=== PATIENT | male | born 1960 | race Caucasian/White ===

== ENCOUNTER 2017-08-13 15:39 | Inpatient (IN) | payer OTHER ==
[~2017-08-13] VITALS: Ht 175.3 cm; Wt 95.7 kg
--- NOTE | ~2017-08-13 | EKG ---
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 Baseline wander in lead(s) II,aVR Electronically Signed On 08-13-2017 16:55:32 WIRE FENCE ERECTOR by Donny Sawant [email or web address] <ELECTRONICALLY SIGNED> By: Donny Sawant MD 08/13/17 5033 05 05 Donny Sawant MD /JESSY
--- NOTE | ~2017-08-13 | HC ---
[facility] [address] [place] [address] CONSULTATION Name: PALMIRA ALMAZAN Room #: 355-P ADM IN .R.#: [id number] Admission: 08/13/17 Attend Phys: Brian Green MD Discharge: Date of : 58 Report #: [id number] THIS REPORT FOR: //name// CC: Brian Velasco HISTORY OF PRESENT ILLNESS: A 57-year-old male who I have seen 2 years ago for an urgent PTCA stent of his ostial RCA and this was October of 2015. He sought no medical or cardiology followup since that time. Admitted to repair a hernia, which apparently had prior failed operations elsewhere. I am asked to see him for some progressive shortness of breath and dyspnea. He has not had prior heart failure. He has not had LV dysfunction. EF was near normal 2 years ago. He is not aware of any infarct since that time. His chest x-ray, the CT of his abdomen showed a small hernia that was not incarcerated and bilateral pleural effusions. Question of a right lower lobe infiltrate. He denies chest pain, anginal complaints. LABORATORY DATA: Creatinine is 2.2, sodium 141, potassium 3.7, alkaline phosphatase 128. Troponin 0.12, was 0.09, not perceive this to be clinically significant. He has had small elevations in troponins previously without ischemic events. ProBNP was 15,946. H and H are 12.6 and 38, white count 5.7, platelets 220. CT of the abdomen: Cirrhotic changes of his liver, prior cystectomy, appendectomy, right-sided abdominal hernia containing small bowel, some calcification in the aorta and small bilateral pleural effusions, basilar atelectasis, consistent with the chest x-ray findings. SOCIAL HISTORY: He lives alone, not , no children. Moderately heavy alcohol, tobacco use. PAST MEDICAL HISTORY: Positive for coronary artery disease, hypertension, multiple fractures, question diabetes, gout, sleep apnea, carotid stent he states in 2014, an appendectomy, cholecystectomy, hernia surgery x 2 and a rectal tumor with excision. REVIEW OF SYSTEMS: Negative except for increasing fatigue and some nocturia. PHYSICAL EXAMINATION: GENERAL: He is alert. He is in no distress. VITAL SIGNS: Blood pressure is 110/70, pulse 70. HEENT: Eyes reveal xanthelasmas. Pharynx is clear. NECK: Shows preserved upstrokes without JVD or bruits. LUNGS: Slight diminished in the bases, otherwise clear. CARDIOVASCULAR: Regular rate and rhythm, S1, S2. ABDOMEN: Soft. It is tender on the right lower quadrant. There appears to be some hernia. EXTREMITIES: Reveal no edema. Pulses diminished. NEUROLOGIC: Nonfocal. [facility] [address] [place] [address] CONSULTATION Name: PALMIRA ALMAZAN Room #: 355-P [facility] IN M.R.#: [id number] Admission: 08/13/17 Attend Phys: Brian Green MD Discharge: Date of : 58 Report #: [id number] SKIN: Warm and dry without xanthoma or ulcer. MUSCULOSKELETAL: Generalized arthritic changes. ASSESSMENT: 1. Abdominal hernia in need of repair. 2. Mild congestive heart failure exacerbation may well be on the basis of diastolic dysfunction. 3. Coronary artery disease with a history of a drug-eluting stent to his right coronary artery in October 2015 with 40% circ and left anterior descending lesions. 4. Hypertension. 5. Hypercholesterolemia. 6. Tobacco use, chronic obstructive pulmonary disease. 7. History of ETOH abuse. 8. Hypercholesterolemia. RECOMMENDATIONS AND PLAN: I agree with the IV Lasix, which has been added. He does appear to be fairly well compensated at this time. He is also on chlorthalidone, losartan, Bystolic 10 and atorvastatin 40. Would continue all these. Blood pressure control is better tonight, has been hypertensive. The Plavix has been held for possible surgery. I will check an echo Doppler in the morning and he may need stress testing prior to abdominal surgery. I will discuss the timing of this with Dr. Green and Dr. Higgins. I guess he would be at risk for some progression of his coronary disease. Last catheterization as stated was October of 2015 and no cardiology followup since that time. The trivial troponin elevation is not significant. <ELECTRONICALLY SIGNED> By: Donnie Sainz MD, FACC 08/20/177 15 1643 Donnie Sainz MD, FACC /nt
--- NOTE | ~2017-08-13 | EKG ---
[address] [address] ELECTROCARDIOGRAM REPORT Name: NORAHPALMIRA HICKS Room #: 355- ADM IN M.R.#: [id number] Admission: 08/13/17 Attend Phys: Brian Green MD Discharge: Date of : 58 Report #: [id number] THIS REPORT FOR: //name// 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1960 Requested By: Donnie Sainz Order Number: [id number] MD: Donny Sawant Measurements Intervals [place] Rate: 60 P: 45 WY: 209 QRS: 29 QRSD: 98 T: 146 QT: 482 QTc: 482 Interpretive Statements Sinus rhythm Borderline prolonged [place] interval Probable left atrial enlargement LVH with secondary repolarization abnormality Anterior ST elevation, probably due to LVH Electronically Signed On 08-15-2017 9:18:26 WINDERMAN by Donny Sawant [email or web address] <ELECTRONICALLY SIGNED> By: Donny Sawant MD 08/15/17917 6 6 Donny Sawant MD /JESSY
--- NOTE | ~2017-08-13 | HC ---
[facility] [address] [place] [address] CONSULTATION Name: PALMIRA ALMAZAN Room #: 355-P [facility] IN [place].R.#: [id number] Admission: 08/13/17 Attend Phys: Brian Green MD Discharge: 08/22/17 Date of : 58 Report #: [id number] THIS REPORT FOR: //name// CC: Brian Velasco REASON FOR CONSULTATION: Elevated creatinine. REASON FOR PRESENTATION: The patient was admitted on August 13, with abdominal pain. HISTORY OF PRESENT ILLNESS: A 57-year-old with multiple medical problems including diabetes mellitus, coronary artery disease, hypertension, history of stroke. He had recurrent incisional ventral hernia. He presented with worsening abdominal symptoms and was admitted for further evaluation and management. Cardiac evaluation was initiated as the patient is known to have stent of the distal RCA. It does look like that there is an issue of noncompliance. He does not know his kidney function, but he was told that he had some kidney issues couple of years ago. He was also at the [facility] for unclear reasons. On presentation, his creatinine was 2.5. He ended up with the cardiac cath with unknown amount of contrast and his creatinine has started to peak at 3.1 as of today. I am being asked to manage his chronic kidney disease. PAST MEDICAL HISTORY: Extensive and includes the followin. Hypertension. 2. Coronary artery disease. 3. Diabetes mellitus. 4. Noncompliance with medical care. 5. CVA. 6. Recurrent incisional abdominal hernia. 7. Rectal tumor removed in 2013. 8. Cholecystectomy. 9. Appendectomy. 10. Anxiety. FAMILY HISTORY: His father of [place] at a young age. SOCIAL HISTORY: Denies drug or alcohol abuse, but he is a current everyday smoker. MEDICATIONS: Reported aspirin, atorvastatin, Plavix, chlorthalidone, losartan, metformin, and Bystolic. REVIEW OF SYSTEMS: GENERAL: No fever or chills. CARDIOVASCULAR: No chest pain or palpitation. [address] [address] CONSULTATION Name: PALMIRA ALMAZAN Room #: 355-P [facility] IN [facility].#: [id number] Admission: 08/13/17 Attend Phys: Brian Green MD Discharge: 08/22/17 Date of : 58 Report #: [id number] PULMONARY: No cough or hemoptysis. GASTROINTESTINAL: As per the history of present illness. GENITOURINARY: No frequency, no urgency. PHYSICAL EXAMINATION: GENERAL: He is alert and oriented. VITAL SIGNS: Blood pressure 127/82, temperature 37. HEAD AND NECK: No jugular venous distention, no bruit, no thyromegaly. CHEST: Clear to auscultation. CARDIOVASCULAR: No rub. Regular. ABDOMEN: Soft, nontender. LOWER EXTREMITIES: No edema. LABORATORY VALUES: Reviewed. Hemoglobin 12. Chemistry revealed creatinine of 3.1. UA with +3 protein. IMAGING: His chest x-ray was reviewed. Abdomen and CT pelvis reviewed. ASSESSMENT, IMPRESSION, AND PLAN: 1. Acute kidney injury. 2. Contrast-induced nephropathy. 3. Chronic kidney disease. 4. Status post cardiac cath. 5. Hypertension. 6. Diabetes mellitus. 7. Noncompliance with the medical care. 8. This is all acute contrast nephropathy. 9. Continue to watch electrolytes. 10. Good urine output. 11. Avoid nephrotoxins. 12. Continue to hold Lasix, chlorthalidone, losartan for now. 13. We will continue to follow along. <ELECTRONICALLY SIGNED> By: Lilia Haines MD 08/23/17 1703 0847 1143 Lilia Haines MD /nt
--- NOTE | ~2017-08-13 | HC ---
[facility] [address] [place] [address] CONSULTATION Name: PALMIRA ALMAZAN Room #: 355-P ADM IN M.R.#: [id number] Admission: 08/13/17 Attend Phys: Brian Green MD Discharge: Date of : 58 Report #: [id number] THIS REPORT FOR: //name// CC: Brian Velasco MD DATE OF SERVICE: 08/14/2017 TYPE OF REPORT: General surgery consultation. ATTENDING PHYSICIAN: Brian Green M.D. CONSULTING PHYSICIAN: Elio Aaron M.D. REASON FOR CONSULTATION: Abdominal pain. HISTORY OF PRESENT ILLNESS: This is a 57-year-old male patient with multiple medical issues, who is being followed by our service for a recurrent incisional ventral hernia. He has been seen by my partner, Dr. Emilio Higgins in evaluation for this and the patient is in the process of being scheduled for elective repair of his hernia. He was seen in the Emergency Room with worsening abdominal pain. He has had difficulty with upper respiratory symptoms (felt as if he had the flu) with coughing causing worsened abdominal pain. Upon admission, the patient was also found to have an elevated BNP and creatinine. He denies recent fever or chills. PAST MEDICAL HISTORY: Significant for congestive heart failure, diabetes mellitus, previous myocardial infarction, sleep apnea, history of stroke, hypertension and gout. PAST SURGICAL HISTORY: Open appendectomy in 2013, laparoscopic repair of incisional ventral hernia in 2014, open retrorectus repair of recurrent incisional ventral hernia early 2016, cholecystectomy, prostate surgery, excision of a rectal tumor/unresectable polyp and carotid stent placement. HOME MEDICATIONS: Include Lipitor, PhosLo, chlorthalidone, Klonopin, Imdur, Prinivil, Glucophage, Toprol-XL, Phenergan, Aldactone, vitamin D and Plavix. ALLERGIES: No known drug allergies. FAMILY HISTORY: Reviewed and noncontributory to this hospitalization. SOCIAL HISTORY: The patient smokes one-half to 1 pack of cigarettes daily. Note denies use of alcohol or illicit drugs. [facility] [address] [place] [address] CONSULTATION Name: PALMIRA ALMAZAN Room #: 355-P [facility] IN ..#: [id number] Admission: 08/13/17 Attend Phys: Brian Green MD Discharge: Date of : 58 Report #: [id number] REVIEW OF SYSTEMS: As per history of present illness. GENERAL: The patient denies fever or chills. Denies unintentional weight loss. HEENT: Denies changes in taste, vision, hearing or smell. RESPIRATORY: Denies worsening shortness of breath or COPD, has a history of sleep apnea. CARDIOVASCULAR: Denies chest pain or palpitations. GASTROINTESTINAL: Soft and obese with a long midline incisional scar and a transverse right lower quadrant scar. He has tenderness to palpation in the right periumbilical area as well as bulging in the right lateral area with no overlying erythema or edema. GENITOURINARY: Denies dysuria, urgency, increased urinary frequency or hematuria. MUSCULOSKELETAL: Denies myalgia or arthralgia. NEUROLOGICAL: Denies headaches, numbness or tingling. PSYCHIATRIC: Denies depression, anxiety or suicidal ideations. SKIN AND INTEGUMENTARY: Denies new skin lesions, rashes or moles. ENDOCRINE: Denies polydipsia, polyuria, heat or cold intolerance. HEMATOLOGIC: Denies easy bleeding or bruising. All other review of systems is negative. LABORATORY DATA: CBC today shows a white blood cell count of 5.7, hemoglobin 12.6, hematocrit 38.1 and platelets 220. Electrolytes showed a sodium of 141, potassium 3.7, chloride 106, CO2 26, BUN 34, creatinine 2.2 and glucose 125. Albumin was low at 2.8. Troponin-I was slightly elevated at 0.09 on admission, increased to 0.12 this morning. BNP was 15,946. Urinalysis showed 3+ protein, trace blood but was otherwise negative. RADIOLOGIC STUDIES: Chest x-ray showed cardiomegaly with mild infiltrates. CT of the abdomen and pelvis through the Emergency Room showed a right-sided abdominal wall hernia containing small bowel and peritoneal fat measuring 4.2 cm with no findings of incarceration or obstruction. Mild bilateral pleural effusions are present. The patient also had a nodular liver suggestive of mild cirrhotic change. IMPRESSION AND PLAN: This is a 57-year-old male patient with the above listed comorbidities, who has a recurrent incisional ventral hernia. He also appears to have congestive heart failure and is being evaluated by Cardiology. He was in the process of being scheduled for elective recurrent incisional ventral hernia repair; however, he will need to be cleared from a cardiopulmonary standpoint. The pathophysiology and natural history of his recurrent hernia were discussed. The patient expressed understanding of the plan. We will follow along while hospitalized. We sincerely appreciate the opportunity to participate in the care of this [facility] [address] [place] [address] CONSULTATION Name: PALMIRA ALMAZAN Room #: 355-P ADM IN M.R.#: [id number] Admission: 08/13/17 Attend Phys: Brian Green MD Discharge: Date of : 58 Report #: [id number] patient and will leave further recommendations and orders in the electronic medical record as appropriate. <ELECTRONICALLY SIGNED> By: Elio Aaron MD, FACS 08/16/17 0856 1446 0130 Elio Aaron MD, FACS /nt
--- NOTE | ~2017-08-13 | 2DMMODE ---
[place] [address] [address] [facility] [employer] [place] [address] 2 D/M-MODE ECHOCARDIOGRAM Name: PALMIRA ALMAZAN Room #: 355-P ADM IN ..#: [id number] Admission: 08/13/17 Attend Phys: Brian Green MD Discharge: Date of : 58 Date of Service: 08/15/17 1845 Report #: [id number] THIS REPORT FOR: //name// APPROVED REPORT Study performed: 08/15/2017 15:24:20 EXAM: Comprehensive 2D, Doppler, and color-flow Echocardiogram Patient Location: Bedside Room #: 355 Status: on-call BSA: 2.14 HR: 69 bpm BP: 145/91 mmHg Rhythm: NSR Other Information Study Quality: Adequate Risk Factors: Cardiac Risk Factors: HTN, Hyperlipidemia, DM Indications Pre-Op Congestive Heart Failure Chest Pain S/P W[place](2015) 2D Dimensions LVEF(%): 36.84 (>50%) IVSd: 14.32 (7-11mm) LVOT Diam: 21.00 (18-24mm) LVDd: 52.87 mm PWd: 12.86 (7-11mm) Ascending Ao: 32.13 (22-36mm) LVDs: 43.42 (25-40mm) Aortic Root: 33.13 mm LV Single Plane 4CH: 29.60 % LV Single Plane 2CH: 31.51 % Mike's LVEF: 30.56 % Biplane EF: 31.4 % Volumes Left Atrial Volume (Systole) Single Plane 4CH: 76.83 mL Single Plane 2CH: 89.98 mL LA ESV Index: 43.00 mL/m2 [facility] [place] [address] 2 D/M-MODE ECHOCARDIOGRAM Name: NORAHPALMIRA HICKS Room #: 355-P [facility] IN [facility]#: [id number] Admission: 08/13/17 Attend Phys: Brian Green MD Discharge: Date of : 58 Date of Service: 08/15/17 1845 Report #: [id number] Aortic Valve AoV Peak Eddie.: 1.35 m/s AO Peak Gr.: 8.75 mmHg LVOT Max P.37 mmHg LVOT Max V: 0.92 m/s ALHAJI Vmax: 2.26 cm2 AI Vmax: 3.61 m/s AI [place]: 1.70 m/s2 AI PHT: 615.69 ms Mitral Valve E/A Ratio: 3.8 MV Decel. Time: 170.84 ms MV E Max Eddie.: 1.10 m/s MV A Eddie.: 0.29 m/s MV PHT: 49.54 ms IVRT: 50.75 ms Pulmonary Valve PV Peak Eddie.: 0.68 m/s PV Peak Gr.: 1.85 mmHg Pulmonary Vein P Vein S: 0.26 m/s P Vein A: 0.19 m/s P Vein D: 0.79 m/s P Vein A Dur.: 124.6 msec P Vein S/D Ratio: 0.33 Tricuspid Valve RAP Estimate: 5.00 mmHg Left Ventricle The left ventricle is normal size. There is global hypokinesis of the left ventricle. Mild to moderate concentric left ventricular hypertrophy. Left ventricular systolic function is moderately decreased. LVEF is 35-40%. Grade III - reversible restrictive diastolic dysfunction. Right Ventricle The right ventricle is normal size. The right ventricular systolic function is normal. Atria Left atrium is moderately dilated. The right atrium size is normal. Aortic Valve The Aortic valve is sclerotic. Mild aortic regurgitation. There is no aortic valvular stenosis. [facility] [address] [place] [address] 2 D/M-MODE ECHOCARDIOGRAM Name: PALMIRA ALMAZAN Room #: 355-P [facility] IN [facility]#: [id number] Admission: 08/13/17 Attend Phys: Brian Green MD Discharge: Date of : 58 Date of Service: 08/15/17 1845 Report #: [id number] Mitral Valve There is mitral annular calcification. Moderate mitral regurgitation. No evidence of mitral valve stenosis. Tricuspid Valve The tricuspid valve is normal in structure. Trace tricuspid regurgitation. Unable to assess PA pressure. Pulmonic Valve The pulmonary valve is normal in structure. There is no pulmonic valvular regurgitation. Great Vessels The aortic root is normal in size. IVC is normal in size and collapses with >50% inspiration Pericardium There is no pericardial effusion. <Conclusion> The left ventricle is normal size. Mild to moderate concentric left ventricular hypertrophy. LVEF is 35-40%. Grade III - reversible restrictive diastolic dysfunction. The right ventricle is normal size. Left atrium is moderately dilated. The Aortic valve is sclerotic. There is no aortic valvular stenosis. Moderate mitral regurgitation. Trace tricuspid regurgitation. Unable to assess PA pressure. The aortic root is normal in size. There is no pericardial effusion. <ELECTRONICALLY SIGNED> By: Donnie Sainz MD, FACC 08/15/171844 44 44 Donnie Sainz MD, FACC /INF
--- NOTE | ~2017-08-13 | CATHLAB ---
[facility] [address] [place] [address] INVASIVE PROCEDURE REPORT Name: PALMIRA ALMAZAN Room #: 355-P [facility] IN [facility]#: [id number] Admission: 08/13/17 Attend Phys: Brian Green MD Discharge: Date of : 58 Date of Service: 08/20/172211 Report #: [id number] THIS REPORT FOR: //name// APPROVED REPORT Patient Details Patient Status: In-Patient Room #: The patient is a 57 year-old male Event Personnel Donnie Sainz Cvt Rn, Rojas Walton RN, Tisha Mcmahon RN RN, Nisha Srivastava RTR, ESPINOZA Yeung, Jannette Orantes Monitor Procedures Performed Art Access - R femoral artery* Ancelmo Access - R femoral vein [id number] Initial Mod Sed Same Phys/QHP Gr5y [id number] Right and Left Heart Cath w/or w/o Coronarie [id number] RLHC Hemostasis with Manual pressure Renal Bilateral Peripheral Angiography [id number] CVRENALBIL Procedure Narrative The patient was brought urgently to the Cardiac Catheterization Laboratory and was prepped and draped in a sterile manner. The Right Groin^ was infiltrated with 1% Lidocaine subcutaneous anesthesia. A Right Heart Catheterization was performed with a 7 Fr. Kingsley-Angelika catheter and pressure were recorded. Cardiac outputs were obtained by the Thermal Dilution method. A PINNACLE 6FR Sheath #[id number] sheath was inserted into the RFA^. Coronary angiography was performed using coronary diagnostic catheters. The right coronary system was accessed and visualized with a JR 4 catheter. The left coronary system was accessed and visualized with a JL 4 catheter. The left ventricle was accessed and visualized with a Pigtail catheter. Left ventricular/Aortic Valve gradient assessed via catheter pullback. Pre-demployment femoral angiogram was performed . Hemostasis was obtained with manual pressure following sheath removal without any complications. The patient tolerated the procedure well and there were no complications associated with the procedure. There was no hematoma. Intraoperative Conscious Sedation Sedation start time: 08:29 Case end Time: 08:51 Fentanyl 25.0 mcg Versed 1.5 mg Fluoro Time: 3.05 minutes [address] [place] [address] INVASIVE PROCEDURE REPORT Name: PALMIRA ALMAZAN Room #: 355-P [facility]#: [id number] Admission: 08/13/17 Attend Phys: Brian Green MD Discharge: Date of : 58 Date of Service: 08/20/17 2212 Report #: [id number] Dose: DAP 3844.10 cGycm2 432 mGy Contrast Type and Amount: Visipaque 25 ml Hemodynamics The right atrial mean pressure is 19 mmHg. The right ventricular pressure is 42/6 mmHg. The pulmonary artery pressure is 35/17 mmHg with a mean of 24 mmHg. The mean pulmonary capillary wedge pressure is 19 mmHg. The aortic pressure is 97/59 mmHg with a mean of 75 mmHg. The left ventricular pressure is 96/3 mmHg with a mean of mmHg. The left ventricular end diastolic pressure is 17 mmHg. The cardiac output using thermo method is 3.80 L/min. The cardiac index using thermo method is 1.81 L/min/m2. Conclusion #1 successful right heart catheterization as described above with cardiac output by thermodilution #2 left ventricular pressures obtained no LV gram due to renal insufficiency #3 left main mildly calcified with mild irregularities large giving rise to LAD circumflex and ramus branch #4 extensive proximal calcification of the LAD with mild irregularities extensive the apex eccentric proximal lesion of 50% with mild diagonal disease #5 there is a ramus branch with 3040% irregularity #6 circumflex OM nondominant with mild irregularity #7 dominant right proximal occlusion the PDA STELLA are filled fairly briskly via the left system #8 the ejection fraction by noninvasive means is known to be reduced EF 3035% with inferior wall infarct Recommendations plan: Continue aggressive risk factor modification only 25-30 mL of contrast was utilized here with significant underlying chronic kidney disease No indication for intervention would treat is moderate residual disease with medical therapy. Okay to proceed with abdominal hernia repair surgery per general surgery recommendations <ELECTRONICALLY SIGNED> By: Donnie Sainz MD, FACC 08/20/172211 11 11 Donnie Sainz MD, FACC /INF
[~2017-08-13 15:39] MED LIST: ALLOPURINOL 10100 M1 PO; ASPIRIN325 PO; BYSTOLIC 5 MG5 M1 PO; CHLORTHALIDONE25 MG PO; CLONAZEPAM 1 MG1 M1 PO; COZAAR 50 MG TA50 M2 PO; LIPITOR40 MG PO; LISINOPRIL20 MG PO; METFORMIN HCL500 MG PO; PLAVIX 75 MG TA75 M1 PO
[2017-08-13 15:50] VITALS: BP 198/120
[2017-08-13 16:42] LABS: ABSOLUTE NEUTROPHILS 4.9 thou/uL (1.4-8.2); BASOPHILS 0.7 % (0.0-2.0); HEMATOCRIT 37.7 % (42.0-52.0); HEMOGLOBIN 12.5 gm/dL (14.0-18.0); MCH 26.7 pg (26.0-34.0); MCHC 33.1 g/dL (28.0-37.0); MCV 80.7 fL (80.0-100.0); MONOCYTES 6.8 % (1.0-8.0); PLATELET COUNT 196 thou/uL (150-400); POLYS 77.5 % (36.0-66.0); RBC 4.67 mil/uL (4.50-6.00); RDW 16.1 % (10.5-14.5); WBC 6.4 thou/uL (4.0-11.0)
[2017-08-13 16:49] LABS: CALCIUM 8.6 mg/dL (8.5-10.1); CREATININE 2.1 mg/dL (0.7-1.3); POTASSIUM 3.8 mmol/L (3.5-5.1)
[2017-08-13 16:58] LABS: ALBUMIN 2.8 g/dL (3.4-5.0); TOTAL BILIRUBIN 0.4 mg/dL (<0.1-1.0); TOTAL PROTEIN 6.9 g/dL (6.4-8.2); TROPONIN-I 0.09 ng/mL (<0.06)
[2017-08-13 17:58] LABS: URINE BILIRUBIN NEGATIVE (Negative); URINE BLOOD TRACE (Negative); URINE CLARITY CLEAR; URINE COLOR YELLOW; URINE GLUCOSE-RANDOM* TRACE (Negative); URINE KETONES NEGATIVE (Negative); URINE LEUKOCYTES-REFLEX NEGATIVE (Negative); URINE NITRITE-REFLEX NEGATIVE (Negative); URINE PROTEIN (DIPSTICK) 3+ (Negative); URINE UROBILINOGEN 0.2 E.U./dl (0.2-1.0)
[2017-08-13 18:02] LABS: BACTERIA-REFLEX None Seen /HPF (None Seen); CASTS None Seen /LPF (None Seen); CRYSTALS None Seen /LPF (None Seen); SQUAMOUS None Seen /LPF (0-3); URINE RBC 0-2 Rare /HPF (0-2); URINE WBC-REFLEX 0-5 Rare /HPF (0-5)
[2017-08-13 20:33] VITALS: BP 157/90
[2017-08-13 20:37] VITALS: BP 184/109
[2017-08-13 23:19] VITALS: BP 178/106
[2017-08-14 02:42] VITALS: BP 177/99
[2017-08-14 03:50] VITALS: BP 164/92
[2017-08-14 04:49] LABS: HEMATOCRIT 38.1 % (42.0-52.0); HEMOGLOBIN 12.6 gm/dL (14.0-18.0); MCH 26.7 pg (26.0-34.0); MCV 80.9 fL (80.0-100.0); RBC 4.71 mil/uL (4.50-6.00); RDW 15.5 % (10.5-14.5); WBC 5.7 thou/uL (4.0-11.0)
[2017-08-14 04:59] LABS: CALCIUM 8.8 mg/dL (8.5-10.1); CREATININE 2.2 mg/dL (0.7-1.3); POTASSIUM 3.7 mmol/L (3.5-5.1)
[2017-08-14 05:08] LABS: TROPONIN-I 0.12 ng/mL (<0.06)
[2017-08-14 07:27] VITALS: BP 176/107
[2017-08-14 11:37] VITALS: BP 148/91
[2017-08-14 15:23] VITALS: BP 111/69
[2017-08-14 20:10] VITALS: BP 140/86
[2017-08-15 03:50] VITALS: BP 132/90
[2017-08-15 06:28] LABS: HEMATOCRIT 37.4 % (42.0-52.0); HEMOGLOBIN 12.1 gm/dL (14.0-18.0); MCH 26.3 pg (26.0-34.0); MCHC 32.3 g/dL (28.0-37.0); MCV 81.4 fL (80.0-100.0); RBC 4.6 mil/uL (4.50-6.00); RDW 16.2 % (10.5-14.5); WBC 6.9 thou/uL (4.0-11.0)
[2017-08-15 06:48] LABS: CALCIUM 9.1 mg/dL (8.5-10.1); CREATININE 2.5 mg/dL (0.7-1.3); POTASSIUM 4.2 mmol/L (3.5-5.1)
[2017-08-15 07:37] VITALS: BP 145/91
[2017-08-15 12:05] VITALS: BP 140/96
[2017-08-15 19:40] VITALS: BP 118/74
[2017-08-16 03:50] VITALS: BP 147/74
[2017-08-16 05:21] LABS: CALCIUM 9.4 mg/dL (8.5-10.1); CREATININE 2.6 mg/dL (0.7-1.3); MAGNESIUM 2.1 mg/dL (1.8-2.4); POTASSIUM 4.3 mmol/L (3.5-5.1)
[2017-08-16 08:15] VITALS: BP 124/69
[2017-08-16 11:24] VITALS: BP 139/81
[2017-08-16 18:08] VITALS: BP 142/70
[2017-08-16 19:47] VITALS: BP 126/70
[2017-08-17 04:29] VITALS: BP 132/73
[2017-08-17 05:30] LABS: CALCIUM 9.4 mg/dL (8.5-10.1); CREATININE 2.5 mg/dL (0.7-1.3); MAGNESIUM 2.1 mg/dL (1.8-2.4); POTASSIUM 4.5 mmol/L (3.5-5.1)
[2017-08-17 08:00] VITALS: BP 151/73
[2017-08-17 13:32] VITALS: BP 135/82
[2017-08-17 16:47] VITALS: BP 109/69
[2017-08-18 04:20] VITALS: BP 155/89
[2017-08-18 05:07] LABS: HEMATOCRIT 38.6 % (42.0-52.0); HEMOGLOBIN 12.6 gm/dL (14.0-18.0); MCHC 32.7 g/dL (28.0-37.0); MCV 82.8 fL (80.0-100.0); RBC 4.66 mil/uL (4.50-6.00); RDW 16.1 % (10.5-14.5); WBC 6.7 thou/uL (4.0-11.0)
[2017-08-18 05:31] LABS: CALCIUM 8.9 mg/dL (8.5-10.1); CREATININE 2.7 mg/dL (0.7-1.3); POTASSIUM 4.2 mmol/L (3.5-5.1)
[2017-08-18 17:49] VITALS: BP 143/81
[2017-08-18 19:50] VITALS: BP 137/65
[2017-08-18 23:40] VITALS: BP 124/79
[2017-08-19 04:00] VITALS: BP 123/79
[2017-08-19 06:50] LABS: MCH 26.8 pg (26.0-34.0); MCHC 32.4 g/dL (28.0-37.0); MCV 82.8 fL (80.0-100.0); RBC 4.47 mil/uL (4.50-6.00); WBC 5.6 thou/uL (4.0-11.0)
[2017-08-19 07:18] LABS: POTASSIUM 4.3 mmol/L (3.5-5.1)
[2017-08-19 08:15] VITALS: BP 155/55
[2017-08-19 11:44] VITALS: BP 111/58
[2017-08-19 17:31] VITALS: BP 137/78
[2017-08-19 19:22] VITALS: BP 123/74
[2017-08-20 04:21] LABS: CREATININE 3.1 mg/dL (0.7-1.3); MAGNESIUM 2.3 mg/dL (1.8-2.4); POTASSIUM 4.8 mmol/L (3.5-5.1)
[2017-08-20 05:55] VITALS: BP 127/82
[2017-08-20 09:11] VITALS: BP 139/82
[2017-08-20 11:42] LABS: URINE BILIRUBIN NEGATIVE (Negative); URINE BLOOD NEGATIVE (Negative); URINE CLARITY CLEAR; URINE COLOR YELLOW; URINE GLUCOSE-RANDOM* NEGATIVE (Negative); URINE KETONES NEGATIVE (Negative); URINE LEUKOCYTES NEGATIVE (Negative); URINE NITRITE NEGATIVE (Negative); URINE PROTEIN (DIPSTICK) 2+ (Negative); URINE SPECIFIC GRAVITY 1.015 (1.005-1.035); URINE UROBILINOGEN 0.2 E.U./dl (0.2-1.0)
[2017-08-20 11:59] LABS: BACTERIA 1-9 Few /HPF (None Seen); CASTS None Seen /LPF (None Seen); CRYSTALS None Seen /LPF (None Seen); SQUAMOUS 4-10 Moderate /LPF (0-3); URINE RBC None Seen /HPF (0-2); URINE WBC 0-5 Rare /HPF (0-5)
[2017-08-20 12:00] LABS: URINE PROTEIN-RANDOM* 153.3 mg/dL (<11.9)
[2017-08-20 19:09] VITALS: BP 133/70
[2017-08-21 04:10] VITALS: BP 112/53
[2017-08-21 06:13] LABS: ALBUMIN 2.5 g/dL (3.4-5.0); CREATININE 3.2 mg/dL (0.7-1.3); PHOSPHORUS 5.2 mg/dL (2.5-4.9); POTASSIUM 4.6 mmol/L (3.5-5.1)
[2017-08-21 07:51] VITALS: BP 142/73
[2017-08-21 12:36] VITALS: BP 144/79
[2017-08-21 15:25] VITALS: BP 144/79
[2017-08-21 16:15] VITALS: BP 129/69
[2017-08-21 19:22] VITALS: BP 124/71
[2017-08-22 04:10] VITALS: BP 125/57
[2017-08-22 05:28] LABS: ALBUMIN 2.4 g/dL (3.4-5.0); CALCIUM 8.8 mg/dL (8.5-10.1); CREATININE 3.1 mg/dL (0.7-1.3); PHOSPHORUS 5.4 mg/dL (2.5-4.9)
[2017-08-22 07:50] VITALS: BP 112/59
[2017-08-22] MEDS ORDERED: HYDROCODONE-AP1 EAC6 PO (08:43)
[2017-12-29] MEDS ORDERED: XANAX 0.25 MG0.25 MG PO (08:54)
== END 2017-08-22 14:53 | disposition home health service (06) | DRG 286 ==
LOC: ER 15:39 → EROBS 17:44 → 3W 17:44
PROVIDERS: Emergency Medicine; Hospitalist; Internal Medicine; Internal Medicine Cardiovascular Disease; Surgery
PROC: B2111ZZ Fluoroscopy of Multiple Coronary Arteries using Low Osmolar Contrast (ICD-10-PCS; principal; 2017-08-20)
PROC: 4A023N8 Measurement of Cardiac Sampling and Pressure, Bilateral, Percutaneous Approach (ICD-10-PCS; principal; 2017-08-20)
PROC: B2151ZZ Fluoroscopy of Left Heart using Low Osmolar Contrast (ICD-10-PCS; principal; 2017-08-20)
DX: I13.0 Hypertensive heart and chronic kidney disease with heart failure and stage 1 through stage 4 chronic kidney disease, or unspecified chronic kidney disease (principal); I50.23 Acute on chronic systolic (congestive) heart failure; N17.9 Acute kidney failure, unspecified; E46 Unspecified protein-calorie malnutrition; K21.9 Gastro-esophageal reflux disease without esophagitis; F41.9 Anxiety disorder, unspecified; F17.210 Nicotine dependence, cigarettes, uncomplicated; E11.22 Type 2 diabetes mellitus with diabetic chronic kidney disease; E11.65 Type 2 diabetes mellitus with hyperglycemia; M10.9 Gout, unspecified; Z60.2 Problems related to living alone; I25.10 Atherosclerotic heart disease of native coronary artery without angina pectoris; J44.9 Chronic obstructive pulmonary disease, unspecified; E78.00 Pure hypercholesterolemia, unspecified; G62.2 Polyneuropathy due to other toxic agents; T50.8X5A Adverse effect of diagnostic agents, initial encounter; E11.40 Type 2 diabetes mellitus with diabetic neuropathy, unspecified; E78.5 Hyperlipidemia, unspecified; I16.0 Hypertensive urgency; N18.3 Chronic kidney disease, stage 3 (moderate); K43.2 Incisional hernia without obstruction or gangrene; I25.5 Ischemic cardiomyopathy; I25.2 Old myocardial infarction; Z90.49 Acquired absence of other specified parts of digestive tract; Z86.73 Personal history of transient ischemic attack (TIA), and cerebral infarction without residual deficits; Z79.82 Long term (current) use of aspirin; Z79.899 Other long term (current) drug therapy; Z95.5 Presence of coronary angioplasty implant and graft; Z82.49 Family history of ischemic heart disease and other diseases of the circulatory system; Y92.89 Other specified places as the place of occurrence of the external cause; Z91.14 Patient's other noncompliance with medication regimen
CPT/HCPCS: 10879

== ENCOUNTER 2017-09-17 05:27 | Inpatient (IN) | payer OTHER ==
[~2017-09-17] VITALS: Ht 172.7 cm; Wt 97.3 kg
[2017-09-17] VITALS (7 sets, daily range): BP systolic 132–184; BP diastolic 75–97
--- NOTE | ~2017-09-17 | O ---
[facility] [address] [place] [address] OPERATIVE REPORT Name: PALMIRA ALMAZAN Room #: 416-P ADM IN M.R.#: [id number] Admission: 09/17/17 Attend Phys: Emilio Higgins MD, Discharge: Date of : 58 Report #: [id number] THIS REPORT FOR: //name// CC: Emilio Velasco DATE OF SERVICE: 09/17/2017 PREOPERATIVE DIAGNOSES: 1. Incarcerated recurrent incisional ventral hernia. 2. Congestive heart failure. 3. Diabetes mellitus. 4. Prior myocardial infarction. 5. Obstructive sleep apnea. 6. History of strokes. 7. Hypertension. 8. History of gout. POSTOPERATIVE DIAGNOSES: 1. Incarcerated recurrent incisional ventral hernia. 2. Congestive heart failure. 3. Diabetes mellitus. 4. Prior myocardial infarction. 5. Obstructive sleep apnea. 6. History of strokes. 7. Hypertension. 8. History of gout. 9. Dense intra-abdominal adhesions. 10. Ischemic abdominal wall fascia. 11. Loss of abdominal domain. PROCEDURES PERFORMED: 1. Exploratory laparotomy. 2. Extensive lysis of adhesions lasting 92 minutes. 3. Debridement of ischemic abdominal wall fascia with explantation of displaced synthetic mesh. 4. Complex abdominal wall reconstruction with open repair of multiple incarcerated recurrent incisional ventral hernias using synthetic mesh. 5. Bilateral component separation. 6. Adjacent tissue transfer closure of the anterior abdominal wall, ultimately measuring 42 x 37 cm in dimension (1554 square cm). 7. Placement of a topical wound VAC device (TOSHIA). SURGEON: Emilio Higgins MD SIGNAL INSPECTOR: THI Curry [facility] [address] [place] [address] OPERATIVE REPORT Name: PALMIRA ALMAZAN Room #: 416-P [facility] IN ..#: [id number] Admission: 09/17/17 Attend Phys: Emilio Higgins MD, Discharge: Date of : 58 Report #: [id number] ANESTHESIA: General endotracheal anesthesia with epidural placed in preop. ESTIMATED BLOOD LOSS: 100 mL. COMPLICATIONS: None appreciated. SPECIMENS: 1. Ischemic abdominal wall fascia to pathology. 2. Synthetic mesh to pathology. 3. Hernia sac to pathology. INDICATIONS: The patient is a 57-year-old obese male with the above-mentioned comorbidities, who has undergone both a laparoscopic repair of an incisional ventral hernia as well as a subsequent open retrorectus repair of a recurrent incisional hernia, both using a synthetic mesh in the past. Unfortunately, the patient has had recurrence of this in the right lower quadrant as well as about the midline incision from his most recent repair and as it has incarcerated contents with chronic debilitating pain, indication was for operative repair today. DESCRIPTION OF PROCEDURE: After explaining the risks, benefits and alternatives of the procedure with the patient in detail in the preoperative holding area and obtaining written consent, the patient was brought to the operating room and placed supine on the operating room table. After conducting a thorough timeout procedure, verifying correct patient and procedure, the patient was given general endotracheal anesthesia. Once adequate anesthesia was attained, SCDs were hooked up to pneumatic compression device. He was given a preoperative dose of antibiotics in line with the SCIP protocol. The patient's abdomen was prepped and draped in standard surgical sterile fashion. A #10 bladed scalpel was used to create a longitudinal midline wound from the subxiphoid location to the suprapubic location and carried to the right of the patient's umbilicus following his prior incision site. Electrocautery was used to carry this down through skin and subcutaneous tissues to ensure hemostasis. Once I arrived upon the fascia in the superior most aspect of the incision, I was able to score this and place a finger into the abdomen to control the incision site to prevent injury to the underlying structures from thermal spread. Once I had opened the entirety of the midline fascial wound, which included using curved Medina scissors to transect the prior placed synthetic mesh down the midline, I had a full access to the intra-abdominal domain. I continued taking down adhesions using electrocautery and Metzenbaum scissor dissection, although luckily the bowels were not tethered to the abdominal wall whatsoever and it was incarcerated with mainly omentum. Once I had finished the lysis of adhesions and freed all the omentum from the posterior aspect of the anterior abdominal wall, I proceeded to continue debridement of the ischemic abdominal wall fascia as this was nonviable down the midline. This [address] [address] OPERATIVE REPORT Name: PALMIRA ALMAZAN KURT Room #: 416-P [facility] IN M.R.#: [id number] Admission: 09/17/17 Attend Phys: Emilio Higgins MD, Discharge: Date of : 58 Report #: [id number] was resected with electrocautery and in doing so, I also explanted the prior placed synthetic mesh patch. All synthetic material was removed in this fashion and passed off the field as specimen. Once I debrided the fascia back to healthy vascularized actual fascia and not simply hernia sac, we were able to evaluate the hernias in question. The patient had a recurrent incisional hernia down the midline as well as the right lower quadrant open appendectomy incision site. I now proceeded to continue debridement by creating large flaps circumferentially around both hernia defects externally. Once these flaps had been created keeping all perforating vessels intact, I proceeded to perform repair of the hernia defect in the right lower quadrant. This was closed using a #1 PDS suture in standard running fashion. Evaluation of the retrorectus space at this juncture showed that it had been obliterated at his most recent attempted hernia repair and there was some concern that his right rectus muscle was atrophic; however, upon dissecting today, he had a beefy intact normal rectus muscle on both sides. Now that the hernia had been sutured closed, hemostasis was assured throughout. The small bowel was evaluated and was healthy and uninjured. I proceeded to close the midline fascial wound using looped #1 PDS suture in standard running fashion. This was tied down in the subxiphoid location in standard fashion. I had elected to place a synthetic onlay in this setting as intraperitoneal was not ideal in this patient population as well as the retrorectus space having already been obliterated. Upon closing the midline fascial wound, it appeared that it was going to be under significant tension and as such, the sutures were loosened up and I performed bilateral component separation of the external oblique aponeurosis on both sides. This was done by using electrocautery to score the lateral border of the rectus abdominis muscle bilaterally, which allowed significant medial mobilization of the midline tissues. The sutures were now tightened down and tied down in subxiphoid location as previously described, bringing the midline fascial wound together without significant tension down the midline. I now selected a piece of Prolene hernia mesh measuring 30 x 30 cm in dimension. This was cut and tailored to size to fit as an onlay in the subcutaneous space and was anchored to this fascia using numerous sutures of #1 PDS in standard interrupted fashion as well as 32 mL of Tisseel. This held the mesh flat to the abdominal wall with excellent orientation. Care was taken to anchor this with both sutures and glue at an area 5 cm lateral to the right lower quadrant hernia defect and was anchored to the anterior superior iliac spine on the right as well as fascia all along the lateral and inferior and superior borders around the hernia defect itself. The mesh itself covered both the hernia defect as well as the midline fascial closure, which had an incisional ventral hernia as well upon entry into the abdomen. Two separate 19-Guatemalan round Getachew-Banda drains were now brought out, one through the right lower quadrant and the other through the left lower quadrant, which were anchored to the skin using 2-0 nylon in standard fashion. Each drain crossed low in the pelvis and ran up the subcutaneous gutters. As the patient's tissues appeared substandard in the subcutaneous space, I did perform an adjacent tissue transfer closure. The large skin flaps were elevated and relaxing incisions were made internally [address] [address] OPERATIVE REPORT Name: PALMIRA ALMAZAN Room #: 416-P ADM IN M.R.#: [id number] Admission: 09/17/17 Attend Phys: Emilio Higgins MD, Discharge: Date of : 58 Report #: [id number] along the subcutaneous gutters using electrocautery. This allowed me to medially rotate vascularized pedicles of subcutaneous fat down the midline, which were anchored down the midline using 3-0 PDS in standard interrupted inverted fashion. Once I performed adjacent tissue transfer closure of the subcutaneous space, we had vascularized healthy tissue overlying the mesh in question. I then closed the skin using skin leo in standard fashion and applied a topical wound VAC (TOSHIA) device. At the end of the lengthy procedure, all instrument, needle and sponge counts were correct. The patient tolerated the procedure without incident, was awakened in the operating room and transitioned to the recovery room in stable condition with no apparent complications. <ELECTRONICALLY SIGNED> By: Emilio Higgins MD, FACS 09/18/17 0743 1621 [id number] Emilio Higgins MD, FACS /nt
--- NOTE | ~2017-09-17 | S ---
[facility] [address] [place] [address] SURGICAL PATH RPT PROCEDURE Name: NIELS ALMAZAN Room #: 416-P ADM IN M.R.#: [id number] Admission: 09/17/17 Date of : 58 Discharge: Report #: [id number] Path Case #: [id number] PATHOLOGY REPORT COLLECTION DATE: 09/17/2017 RECEIVED DATE: 09/17/2017 SUBMITTING PHYS: Dr. Emilio Higgins OTHER PHYS: Dr. Kingsley Velasco SPECIMEN(S) RECEIVED: A.Abdominal mesh B.Ventral hernia sac C.Abdominal wall tissue * * * * * * * * * * * * FINAL DIAGNOSIS: A. "Abdominal mesh", removal: - Fibroadipose connective tissue and synthetic material with fibrosis and chronic inflammation consistent with abdominal mesh. B. "Ventral hernia sac", hernia repair: - Vascularized fibroadipose connective tissue with mesothelial lining consistent with hernia sac. C. "Abdominal wall tissue", excision: - Vascularized fibroadipose connective tissue and skeletal muscle with fibrosis, chronic inflammation, focal fresh hemorrhage and skeletal muscle atrophy. (CLW:db; 09/18/2017) PATHOLOGIST: Joanna Farley M.D. REPORT ELECTRONICALLY SIGNED BY: Joanna Farley M.D. DATE/TIME: 09/18/2017 14:57 * * * * * * * * * * * * GROSS PATHOLOGY: A. Received in formalin labeled "Niels Almazan, abdominal wall mesh" are multiple elliptical and irregular portion of blue-clear woven surgical mesh which measure in aggregate 14.2 x 11.0 x 0.6 cm. The mesh is covered with a thin layer of pink-miller membranous soft tissue. One of the portions has a scant amount of yellow-miller adherent fibroadipose tissue. No gross abnormalities are identified. Corpsman sections of the attached soft tissue are submitted in cassette A1. B. Received in formalin labeled "Niels Almazan, ventral hernia sac" are 2 portions of pink-miller membranous soft tissue which measure 4.5 x 2.3 x 0.7 cm and 5.3 x 2.3 x 0.5 cm. The specimen is serially sectioned to reveal a miller-white fibrotic cut surface and no gross [address] [address] SURGICAL PATH RPT PROCEDURE Name: NIELS ALMAZAN Room #: 416-P ADM IN [facility].#: [id number] Admission: 09/17/17 Date of : 58 Discharge: Report #: [id number] Path Case #: [id number] abnormalities. Corpsman sections are submitted in cassette B1. C. Received in formalin labeled "Niels Almazan, abdominal wall tissue" is a 14.6 x 3.2 x 0.8 cm portion of pink-miller rubbery soft tissue. The specimen is sectioned to reveal a miller-white fibrotic cut surface. Corpsman sections are submitted in cassette C1. ([facility] [place]; 09/17/2017) CLINICAL HISTORY: Recurrent incisional ventral hernia. INITIAL CPT CODE(S): A; 92035 B; 37927 C; 41546 Professional services performed by [facility] at [facility] [address], [place] [address] Technical services performed by [facility] at [address] [place] [address], [address], [place] [address]. [facility] [address] [place] [address] PHONE: [phone] DIRECTOR: Trenton Garcia M.D. * * * END OF REPORT * * *
--- NOTE | ~2017-09-17 | HC ---
[facility] [address] [place] [address] CONSULTATION Name: PALMIRA ALMAZAN Room #: 416-P [facility] IN .R.#: [id number] Admission: 09/17/17 Attend Phys: Emilio Higgins MD, Discharge: 09/24/17 Date of : 58 Report #: [id number] THIS REPORT FOR: //name// CC: Emilio Velasco DATE OF SERVICE: 09/21/2017 HISTORY OF PRESENT ILLNESS: The patient is a 57-year-old obese white male was admitted and noted to have an incarcerated recurrent incisional ventral hernia. He underwent explantation of displaced mesh with complex abdominal wall reconstruction 09/17/[address] Parsons. He has the drain in place. He has multiple medical comorbidities as noted below and we are seeing him in rehabilitation medicine consultation. PAST MEDICAL HISTORY: Includes a prior CVA with residual right-sided weakness and the use of a cane. History of hypertension, CHF, diabetes mellitus, prior [place], obstructive sleep apnea, acute on chronic renal insufficiency. MEDICATIONS: Please see the full medication listing. SOCIAL HISTORY: Lives in a house with his mother 2 steps in and used a cane to get around. REVIEW OF SYSTEMS: Did not offer any current complaints of chest pain, shortness of breath. He has some abdominal discomfort as expected. No focal extremity pain complaints at this time other than the residual right-sided weakness from his prior stroke. PHYSICAL EXAMINATION: GENERAL: A 57-year-old overweight white male, bearded no obvious distress. VITAL SIGNS: Temperature 98.4, pulse 60, respirations 18, blood pressure 181/93. HEENT: Facies appeared symmetric. EXTREMITIES: Functional range of motion of both upper extremities. Strength is a grade 4 to 4-/5, left upper extremity and a grade 4-/5, right upper extremity. In his lower extremities, functional range of motion strength is probably a grade 4-/5. Abdominal incision is dressed and he has the drain in place. Functionally, he has been contact guard with sit to stand. Gait was min assist 150 feet with the cane. ASSESSMENT: A 57-year-old white male with the following problem list: 1. Generalized weakness and debilitation. 2. Incarcerated recurrent incisional ventral hernia, status post complex abdominal wall reconstruction and explantation of displaced mesh. 3. Premorbid CVA with some residual right-sided weakness. 4. Acute on chronic renal insufficiency with Internal [address] [address] CONSULTATION Name: PALMIRA ALMAZAN Room #: 416-P [facility] IN .R.#: [id number] Admission: 09/17/17 Attend Phys: Emilio Higgins MD, Discharge: 09/24/17 Date of : 58 Report #: [id number] Medicine involved. 5. Hypertension. 6. Diabetes mellitus type 2. 7. Obstructive sleep apnea. PLAN: We are assessing how he does in therapies. Question is whether he could go directly home or whether he might benefit from a short acute inpatient rehabilitation stay to further maximize his strength and endurance prior to returning back to the home setting. We will be glad to follow along with you regarding his rehab therapy needs. <ELECTRONICALLY SIGNED> By: Edgar Rivas MD 10/13/17 1030 1248 [id number] Edgar Rivas MD /nt
[~2017-09-17 05:27] MED LIST changes: +HYDROCODONE-AP1 EAC6 PO
[2017-09-17 07:19] LABS: CALCIUM 8.9 mg/dL (8.5-10.1); CREATININE 2.8 mg/dL (0.7-1.3); POTASSIUM 4.4 mmol/L (3.5-5.1)
[2017-09-17 07:25] LABS: HEMATOCRIT 36.3 % (42.0-52.0); MCH 27.1 pg (26.0-34.0); MCHC 32.9 g/dL (28.0-37.0); MCV 82.3 fL (80.0-100.0); RBC 4.41 mil/uL (4.50-6.00); RDW 16.8 % (10.5-14.5); WBC 6.8 thou/uL (4.0-11.0)
[2017-09-18] VITALS: BP 133/72
[2017-09-18 03:58] VITALS: BP 161/87
[2017-09-18 07:21] LABS: ABSOLUTE NEUTROPHILS 5.6 thou/uL (1.4-8.2); BASOPHILS 0.2 % (0.0-2.0); EOSINOPHILS 2.9 % (0.0-3.0); HEMATOCRIT 34.2 % (42.0-52.0); HEMOGLOBIN 11.2 gm/dL (14.0-18.0); LYMPHOCYTES 7.4 % (24.0-44.0); MCH 26.8 pg (26.0-34.0); MCHC 32.7 g/dL (28.0-37.0); MCV 81.8 fL (80.0-100.0); MONOCYTES 5.7 % (1.0-8.0); PLATELET COUNT 135 thou/uL (150-400); POLYS 83.8 % (36.0-66.0); RBC 4.18 mil/uL (4.50-6.00); RDW 17.1 % (10.5-14.5); WBC 6.7 thou/uL (4.0-11.0)
[2017-09-18 07:39] LABS: CALCIUM 8.7 mg/dL (8.5-10.1); CREATININE 2.6 mg/dL (0.7-1.3); POTASSIUM 4.6 mmol/L (3.5-5.1)
[2017-09-18 08:02] VITALS: BP 148/84
[2017-09-18 17:59] VITALS: BP 179/93
[2017-09-18 20:00] VITALS: BP 194/90
[2017-09-18 21:18] VITALS: BP 182/94
[2017-09-19 00:30] VITALS: BP 188/103
[2017-09-19 04:00] VITALS: BP 170/91
[2017-09-19 06:44] LABS: ABSOLUTE NEUTROPHILS 5.9 thou/uL (1.4-8.2); BASOPHILS 0.4 % (0.0-2.0); EOSINOPHILS 3.6 % (0.0-3.0); HEMATOCRIT 36.9 % (42.0-52.0); LYMPHOCYTES 7.7 % (24.0-44.0); MCH 26.6 pg (26.0-34.0); MCHC 32.6 g/dL (28.0-37.0); MCV 81.8 fL (80.0-100.0); MONOCYTES 7.7 % (1.0-8.0); PLATELET COUNT 160 thou/uL (150-400); POLYS 80.6 % (36.0-66.0); RBC 4.51 mil/uL (4.50-6.00); RDW 17.1 % (10.5-14.5); WBC 7.4 thou/uL (4.0-11.0)
[2017-09-19 06:52] LABS: CALCIUM 8.9 mg/dL (8.5-10.1); CREATININE 1.9 mg/dL (0.7-1.3); POTASSIUM 4.5 mmol/L (3.5-5.1)
[2017-09-19 16:48] VITALS: BP 176/94
[2017-09-19 21:39] VITALS: BP 151/77
[2017-09-20 00:21] VITALS: BP 144/74
[2017-09-20 05:14] VITALS: BP 165/78
[2017-09-20 06:45] LABS: ABSOLUTE NEUTROPHILS 5.4 thou/uL (1.4-8.2); BASOPHILS 0.4 % (0.0-2.0); HEMATOCRIT 35.3 % (42.0-52.0); HEMOGLOBIN 11.4 gm/dL (14.0-18.0); LYMPHOCYTES 11.2 % (24.0-44.0); MCH 26.5 pg (26.0-34.0); MCHC 32.2 g/dL (28.0-37.0); MCV 82.4 fL (80.0-100.0); MONOCYTES 7.8 % (1.0-8.0); PLATELET COUNT 170 thou/uL (150-400); POLYS 74.6 % (36.0-66.0); RBC 4.28 mil/uL (4.50-6.00); WBC 7.2 thou/uL (4.0-11.0)
[2017-09-20 06:59] LABS: POTASSIUM 4.4 mmol/L (3.5-5.1)
[2017-09-20 09:47] VITALS: BP 153/84
[2017-09-20 18:01] VITALS: BP 153/84
[2017-09-20 20:00] VITALS: BP 104/86
[2017-09-21 04:00] VITALS: BP 164/92
[2017-09-21 07:16] LABS: HEMATOCRIT 34.3 % (42.0-52.0); HEMOGLOBIN 11.2 gm/dL (14.0-18.0); MCH 26.8 pg (26.0-34.0); MCHC 32.6 g/dL (28.0-37.0); MCV 82.1 fL (80.0-100.0); RBC 4.18 mil/uL (4.50-6.00); WBC 5.8 thou/uL (4.0-11.0)
[2017-09-21 07:26] LABS: CALCIUM 8.7 mg/dL (8.5-10.1); CREATININE 2.1 mg/dL (0.7-1.3); POTASSIUM 4.4 mmol/L (3.5-5.1)
[2017-09-21 07:38] VITALS: BP 181/93
[2017-09-21 17:10] VITALS: BP 162/84
[2017-09-21 20:00] VITALS: BP 141/83
[2017-09-22 04:00] VITALS: BP 162/89
[2017-09-22 06:49] LABS: HEMATOCRIT 34.2 % (42.0-52.0); HEMOGLOBIN 11.2 gm/dL (14.0-18.0); MCH 26.8 pg (26.0-34.0); MCHC 32.6 g/dL (28.0-37.0); RBC 4.17 mil/uL (4.50-6.00); RDW 17.2 % (10.5-14.5); WBC 5.2 thou/uL (4.0-11.0)
[2017-09-22 07:03] LABS: CALCIUM 8.6 mg/dL (8.5-10.1); CREATININE 2.2 mg/dL (0.7-1.3); POTASSIUM 4.5 mmol/L (3.5-5.1)
[2017-09-22 11:00] VITALS: BP 152/89
[2017-09-22 16:47] VITALS: BP 168/73
[2017-09-22 20:00] VITALS: BP 171/71
[2017-09-23] VITALS: BP 137/76
[2017-09-23 04:00] VITALS: BP 143/76
[2017-09-23 07:45] VITALS: BP 94/53
[2017-09-23 12:30] VITALS: BP 139/81
[2017-09-23 15:17] VITALS: BP 123/68
[2017-09-23 20:00] VITALS: BP 152/75
[2017-09-24 04:00] VITALS: BP 153/81
[2017-09-24 07:11] VITALS: BP 144/90
[2017-09-24] MEDS ORDERED: OXYCODONE HCL10 MG PO (08:08)
[2017-09-24 10:26] VITALS: BP 144/90
[2017-09-24 10:31] VITALS: BP 144/90
[2017-12-29] MEDS ORDERED: XANAX 0.25 MG0.25 MG PO (08:54)
== END 2017-09-24 11:08 | disposition home health service (06) | DRG 336 ==
LOC: OR 05:27 → TBA 05:27 → OR 09:29 → 4N 11:48 → OR 11:48 → ENTRNSPT 09-24 10:58 → EDTRNSPTSTS 09-24 11:01 → 4N 09-24 11:08
PROVIDERS: Anesthesiology; Hospitalist; Surgery
PROC: 0DNU0ZZ Release Omentum, Open Approach (ICD-10-PCS; principal; 2017-09-17)
PROC: 0JX80ZZ Transfer Abdomen Subcutaneous Tissue and Fascia, Open Approach (ICD-10-PCS; principal; 2017-09-17)
PROC: 0JB80ZZ Excision of Abdomen Subcutaneous Tissue and Fascia, Open Approach (ICD-10-PCS; principal; 2017-09-17)
PROC: 0WUF0JZ Supplement Abdominal Wall with Synthetic Substitute, Open Approach (ICD-10-PCS; principal; 2017-09-17)
DX: K43.0 Incisional hernia with obstruction, without gangrene (principal); I69.351 Hemiplegia and hemiparesis following cerebral infarction affecting right dominant side; I13.0 Hypertensive heart and chronic kidney disease with heart failure and stage 1 through stage 4 chronic kidney disease, or unspecified chronic kidney disease; N17.9 Acute kidney failure, unspecified; I50.9 Heart failure, unspecified; G47.33 Obstructive sleep apnea (adult) (pediatric); K66.0 Peritoneal adhesions (postprocedural) (postinfection); M10.9 Gout, unspecified; E11.22 Type 2 diabetes mellitus with diabetic chronic kidney disease; N18.9 Chronic kidney disease, unspecified; E78.5 Hyperlipidemia, unspecified; F43.21 Adjustment disorder with depressed mood; I25.2 Old myocardial infarction
CPT/HCPCS: 10790; 50010; 50093; 50101; 50386; 50455; 50492; 51114; 51412; 51436; 51437; 54109; 56525; 56527; 56530; 57092; 62110; 62900; 65002; 65040; 65075; 70005

== ENCOUNTER 2017-10-10 09:06 | Emergency (ER) | payer OTHER ==
[~2017-10-10] VITALS: Ht 175.3 cm; Wt 86.2 kg
--- NOTE | ~2017-10-10 | EKG ---
[place] [address] [facility] [place] [address] ELECTROCARDIOGRAM REPORT Name: PALMIRA ALMAZAN [id number] Admission: 10/10/17 Attend Phys: Discharge: 10/10/17 Date of : 58 Report #: [id number] THIS REPORT FOR: //name// [facility] ED Test Date: 2017-10-10 Test Time: 09:49:21 Pat Name: PALMIRA ALMAZAN Department: Room: Gender: M Fiber Machine Tender: Nancy SULLIVAN : 1960 Requested By: Woody Santiago Order Number: [id number] MD: Marc Minaya Measurements Intervals [facility] Rate: 74 P: 39 SD: 197 QRS: 16 QRSD: 89 T: 100 QT: 404 QTc: 449 Interpretive Statements Sinus rhythm Probable left atrial enlargement Borderline repolarization abnormality Compared to ECG 08/15/2017 07:27:21 ST (T wave) deviation no longer present Electronically Signed On 10-11-2017 14:01:19 CDT by Marc Minaya [email or web address] <ELECTRONICALLY SIGNED> By: Marc Minaya MD, [facility] 10/11/17 1401 0949 Marc Minaya MD, [facility] /EPI
[~2017-10-10 09:06] MED LIST changes: +OXYCODONE HCL10 MG PO
[2017-10-10] MEDS ORDERED: KEFLEX500 M1 PO (09:24)
[2017-10-10 10:06] LABS: BASOPHILS 0.3 % (0.0-2.0); HEMATOCRIT 33.7 % (42.0-52.0); HEMOGLOBIN 10.8 gm/dL (14.0-18.0); LYMPHOCYTES 10.5 % (24.0-44.0); MCH 26.3 pg (26.0-34.0); MONOCYTES 5.3 % (1.0-8.0); PLATELET COUNT 301 thou/uL (150-400); POLYS 81.9 % (36.0-66.0); RBC 4.11 mil/uL (4.50-6.00); RDW 17.1 % (10.5-14.5); WBC 8.6 thou/uL (4.0-11.0)
[2017-10-10 10:21] LABS: ANION GAP 7 mmol/L (7-16); BUN 29 mg/dL (7-18); CALCIUM 8.8 mg/dL (8.5-10.1); CHLORIDE 109 mmol/L (98-107); CO2 25 mmol/L (21-32); CREATININE 1.9 mg/dL (0.7-1.3); GLUCOSE 124 mg/dL (74-106); POTASSIUM 4.6 mmol/L (3.5-5.1); SODIUM 141 mmol/L (136-145)
[2017-10-10 10:31] LABS: ALBUMIN 2.4 g/dL (3.4-5.0); LIPASE 563 U/L (73-393); SGOT 82 U/L (15-37); SGPT 103 U/L (30-65); TOTAL BILIRUBIN 0.2 mg/dL (<0.1-1.0); TOTAL PROTEIN 6.5 g/dL (6.4-8.2); TROPONIN-I < 0.04 ng/mL (<0.06)
[2017-10-10] MEDS ORDERED: NORCO 5-325 TA1 EACH PO (11:49)
[2017-10-10 12:27] VITALS: BP 193/97
[2017-12-29] MEDS ORDERED: XANAX 0.25 MG0.25 MG PO (08:54)
== END 2017-10-10 12:28 | disposition home or self-care (01) ==
LOC: ER 09:06
PROVIDERS: Nurse Practitioner
DX: L76.34 Postprocedural seroma of skin and subcutaneous tissue following other procedure (principal); R10.9 Unspecified abdominal pain; F41.9 Anxiety disorder, unspecified; M10.9 Gout, unspecified; G47.30 Sleep apnea, unspecified; I11.0 Hypertensive heart disease with heart failure; I50.9 Heart failure, unspecified; E11.9 Type 2 diabetes mellitus without complications; F17.210 Nicotine dependence, cigarettes, uncomplicated; Z90.49 Acquired absence of other specified parts of digestive tract; Z95.5 Presence of coronary angioplasty implant and graft; Z86.73 Personal history of transient ischemic attack (TIA), and cerebral infarction without residual deficits

== ENCOUNTER 2017-10-21 18:17 | Inpatient (IN) | payer OTHER ==
[~2017-10-21] VITALS: Ht 175.3 cm; Wt 98.9 kg
[~2017-10-21 18:17] MED LIST changes: +KEFLEX500 M1 PO; +NORCO 5-325 TA1 EACH PO
[2017-10-21 18:23] VITALS: BP 131/92
[2017-10-21 19:24] LABS: HEMATOCRIT 29.9 % (42.0-52.0); HEMOGLOBIN 9.8 gm/dL (14.0-18.0); MCH 26.5 pg (26.0-34.0); MCHC 32.9 g/dL (28.0-37.0); MCV 80.6 fL (80.0-100.0); PLATELET COUNT 388 thou/uL (150-400); RBC 3.71 mil/uL (4.50-6.00); RDW 17.2 % (10.5-14.5); WBC 6.6 thou/uL (4.0-11.0)
[2017-10-21 19:39] LABS: CREATININE 2.6 mg/dL (0.7-1.3); POTASSIUM 4.6 mmol/L (3.5-5.1)
[2017-10-21 19:43] LABS: APTT 31.3 Seconds (24.5-32.8); INR 1.1
[2017-10-21 19:45] LABS: ALBUMIN 2.2 g/dL (3.4-5.0); TOTAL BILIRUBIN 0.2 mg/dL (<0.1-1.0); TOTAL PROTEIN 7.2 g/dL (6.4-8.2)
[2017-10-21 19:52] LABS: METAMYELOCYTES 1 %; MYELOCYTES 1 %
[2017-10-21 19:53] LABS: ANISOCYTOSIS 1+; HYPOCHROMASIA 1+; MICROCYTES 1+
[2017-10-21 21:30] VITALS: BP 152/88
[2017-10-21 21:45] VITALS: BP 160/87
[2017-10-22 00:27] VITALS: BP 158/85
[2017-10-22 04:34] VITALS: BP 177/83
[2017-10-22 06:30] LABS: HEMATOCRIT 29.1 % (42.0-52.0); HEMOGLOBIN 9.5 gm/dL (14.0-18.0); MCH 26.2 pg (26.0-34.0); MCHC 32.6 g/dL (28.0-37.0); MCV 80.6 fL (80.0-100.0); RBC 3.61 mil/uL (4.50-6.00); RDW 16.9 % (10.5-14.5); WBC 6.2 thou/uL (4.0-11.0)
[2017-10-22 06:43] LABS: CALCIUM 8.8 mg/dL (8.5-10.1); CREATININE 2.3 mg/dL (0.7-1.3)
[2017-10-22 08:00] VITALS: BP 189/98
[2017-10-22 15:59] VITALS: BP 175/88
[2017-10-22 22:20] VITALS: BP 155/83
[2017-10-23 01:49] LABS: URINE BILIRUBIN NEGATIVE (Negative); URINE BLOOD NEGATIVE (Negative); URINE CLARITY CLEAR; URINE COLOR YELLOW; URINE GLUCOSE-RANDOM* NEGATIVE (Negative); URINE KETONES NEGATIVE (Negative); URINE LEUKOCYTES-REFLEX NEGATIVE (Negative); URINE NITRITE-REFLEX NEGATIVE (Negative); URINE PROTEIN (DIPSTICK) 2+ (Negative); URINE UROBILINOGEN 0.2 E.U./dl (0.2-1.0)
[2017-10-23 02:08] LABS: SQUAMOUS 0-3 Few /LPF (0-3)
[2017-10-23 02:09] LABS: BACTERIA-REFLEX None Seen /HPF (None Seen); CASTS None Seen /LPF (None Seen); CRYSTALS None Seen /LPF (None Seen); URINE RBC None Seen /HPF (0-2); URINE WBC-REFLEX 0-5 Rare /HPF (0-5)
[2017-10-23 03:20] VITALS: BP 180/85
[2017-10-23 07:08] VITALS: BP 159/84
[2017-10-23] MEDS ORDERED: AUGMENTIN 875-1 EACH PO (15:31)
[2017-10-23] MEDS ORDERED: HYDROCODONE-AP1 EAC6 PO (15:31)
[2017-10-23 16:24] VITALS: BP 159/84
[2017-10-23 16:53] VITALS: BP 173/86
[2017-10-23 17:02] VITALS: BP 159/84
[2017-10-23 19:33] VITALS: BP 163/82
== END 2017-10-23 20:50 | disposition home or self-care (01) | DRG 920 ==
LOC: ER 18:17 → EROBS 20:58 → 4W 20:58
PROVIDERS: Emergency Medicine; Nurse Practitioner Acute Care
PROC: 0W9F3ZZ Drainage of Abdominal Wall, Percutaneous Approach (ICD-10-PCS; principal; 2017-10-22)
DX: L76.34 Postprocedural seroma of skin and subcutaneous tissue following other procedure (principal); I13.0 Hypertensive heart and chronic kidney disease with heart failure and stage 1 through stage 4 chronic kidney disease, or unspecified chronic kidney disease; N17.9 Acute kidney failure, unspecified; J98.11 Atelectasis; N18.4 Chronic kidney disease, stage 4 (severe); K21.9 Gastro-esophageal reflux disease without esophagitis; Y83.8 Other surgical procedures as the cause of abnormal reaction of the patient, or of later complication, without mention of misadventure at the time of the procedure; I50.9 Heart failure, unspecified; F41.9 Anxiety disorder, unspecified; F17.210 Nicotine dependence, cigarettes, uncomplicated; D64.9 Anemia, unspecified; I25.10 Atherosclerotic heart disease of native coronary artery without angina pectoris; Z95.5 Presence of coronary angioplasty implant and graft; Y92.89 Other specified places as the place of occurrence of the external cause; I25.2 Old myocardial infarction; Z86.73 Personal history of transient ischemic attack (TIA), and cerebral infarction without residual deficits
CPT/HCPCS: 10040

== ENCOUNTER → 2017-11-09 | Outpatient (CLI) | payer OTHER ==
[~2017-11-09] VITALS: Ht 175.3 cm; Wt 81.6 kg
[~2017-11-09] MED LIST changes: +AUGMENTIN 875-1 EACH PO
[2017-11-09 07:57] LABS: HEMATOCRIT 34.9 % (42.0-52.0); HEMOGLOBIN 11.2 gm/dL (14.0-18.0); MCH 25.9 pg (26.0-34.0); MCV 80.9 fL (80.0-100.0); RBC 4.32 mil/uL (4.50-6.00)
[2017-11-09 08:04] VITALS: BP 178/94
[2017-11-09 08:08] LABS: PROTIME 10.4 Seconds (9.3-11.4)
[2017-11-09 08:11] LABS: CREATININE 2.2 mg/dL (0.7-1.3)
== END | disposition home or self-care (01) ==
LOC: SPEC 07:22
PROVIDERS: Surgery
DX: T85.628A Displacement of other specified internal prosthetic devices, implants and grafts, initial encounter (principal); Z87.891 Personal history of nicotine dependence; F41.9 Anxiety disorder, unspecified; Z90.49 Acquired absence of other specified parts of digestive tract; I21.3 ST elevation (STEMI) myocardial infarction of unspecified site; I13.0 Hypertensive heart and chronic kidney disease with heart failure and stage 1 through stage 4 chronic kidney disease, or unspecified chronic kidney disease; E11.22 Type 2 diabetes mellitus with diabetic chronic kidney disease; N18.3 Chronic kidney disease, stage 3 (moderate); I50.9 Heart failure, unspecified; Z86.73 Personal history of transient ischemic attack (TIA), and cerebral infarction without residual deficits; Z98.890 Other specified postprocedural states; E66.9 Obesity, unspecified; Z95.5 Presence of coronary angioplasty implant and graft; F17.210 Nicotine dependence, cigarettes, uncomplicated

== ENCOUNTER 2017-11-28 10:42 | Emergency (ER) | payer OTHER ==
[~2017-11-28] VITALS: Ht 175.3 cm; Wt 88.5 kg
[2017-11-28 12:28] LABS: ABSOLUTE NEUTROPHILS 4.9 thou/uL (1.4-8.2); BASOPHILS 0.8 % (0.0-2.0); EOSINOPHILS 2.5 % (0.0-3.0); HEMATOCRIT 36.1 % (42.0-52.0); HEMOGLOBIN 11.8 gm/dL (14.0-18.0); LYMPHOCYTES 13.3 % (24.0-44.0); MCHC 32.7 g/dL (28.0-37.0); MCV 79.4 fL (80.0-100.0); MONOCYTES 7.4 % (1.0-8.0); PLATELET COUNT 294 thou/uL (150-400); RBC 4.55 mil/uL (4.50-6.00); RDW 16.7 % (10.5-14.5); WBC 6.4 thou/uL (4.0-11.0)
[2017-11-28 12:38] LABS: CALCIUM 8.9 mg/dL (8.5-10.1); CREATININE 2.4 mg/dL (0.7-1.3); POTASSIUM 4.1 mmol/L (3.5-5.1)
[2017-11-28 12:40] LABS: INR 1.1; PROTIME 11.1 Seconds (9.3-11.4)
[2017-11-28 12:44] LABS: ALBUMIN 2.9 g/dL (3.4-5.0); TOTAL BILIRUBIN 0.4 mg/dL (<0.1-1.0); TOTAL PROTEIN 7.3 g/dL (6.4-8.2)
[2017-11-28] MEDS ORDERED: PERCOCET 5-3251 EACH PO (14:10)
== END 2017-11-28 14:18 | disposition home or self-care (01) ==
LOC: ER 10:42
PROVIDERS: Physician Assistant
DX: R18.8 Other ascites (principal); I12.9 Hypertensive chronic kidney disease with stage 1 through stage 4 chronic kidney disease, or unspecified chronic kidney disease; E11.22 Type 2 diabetes mellitus with diabetic chronic kidney disease; N18.9 Chronic kidney disease, unspecified; F41.9 Anxiety disorder, unspecified; M10.9 Gout, unspecified; Z86.73 Personal history of transient ischemic attack (TIA), and cerebral infarction without residual deficits

== ENCOUNTER → 2017-12-01 | Outpatient (CLI) | payer OTHER ==
[~2017-12-01] VITALS: Ht 175.3 cm; Wt 86.2 kg
[~2017-12-01] MED LIST changes: +PERCOCET 5-3251 EACH PO; +XANAX 0.25 MG0.25 MG PO
== END | disposition home or self-care (01) ==
LOC: SPEC 06:19
DX: L02.211 Cutaneous abscess of abdominal wall (principal); I13.0 Hypertensive heart and chronic kidney disease with heart failure and stage 1 through stage 4 chronic kidney disease, or unspecified chronic kidney disease; E11.22 Type 2 diabetes mellitus with diabetic chronic kidney disease; N18.3 Chronic kidney disease, stage 3 (moderate); I50.9 Heart failure, unspecified; I25.2 Old myocardial infarction; G47.33 Obstructive sleep apnea (adult) (pediatric); M10.9 Gout, unspecified; E66.09 Other obesity due to excess calories; F41.9 Anxiety disorder, unspecified; F17.210 Nicotine dependence, cigarettes, uncomplicated; Z79.899 Other long term (current) drug therapy; Z86.73 Personal history of transient ischemic attack (TIA), and cerebral infarction without residual deficits; Z98.890 Other specified postprocedural states; Z95.5 Presence of coronary angioplasty implant and graft; Z90.49 Acquired absence of other specified parts of digestive tract; Z87.01 Personal history of pneumonia (recurrent)

== ENCOUNTER → 2017-12-29 | Outpatient (CLI) | payer OTHER | END | disposition home or self-care (01) | LOC: SPEC 08:35 | DX: Z48.03 Encounter for change or removal of drains (principal); I13.0 Hypertensive heart and chronic kidney disease with heart failure and stage 1 through stage 4 chronic kidney disease, or unspecified chronic kidney disease; E11.22 Type 2 diabetes mellitus with diabetic chronic kidney disease; I25.2 Old myocardial infarction; N18.3 Chronic kidney disease, stage 3 (moderate); I50.9 Heart failure, unspecified; M10.9 Gout, unspecified; F17.210 Nicotine dependence, cigarettes, uncomplicated; F41.9 Anxiety disorder, unspecified; E66.09 Other obesity due to excess calories; Z90.49 Acquired absence of other specified parts of digestive tract; Z98.890 Other specified postprocedural states; Z86.73 Personal history of transient ischemic attack (TIA), and cerebral infarction without residual deficits; Z95.1 Presence of aortocoronary bypass graft; Z79.899 Other long term (current) drug therapy; Z79.891 Long term (current) use of opiate analgesic ==

== ENCOUNTER → 2018-05-05 | Outpatient (CLI) | payer OTHER ==
[2018-05-05 10:06] LABS: CREATININE 2.9 mg/dL (0.7-1.3)
== END ==
LOC: CAT 04-21 14:23 → LABMALL 09:27
PROVIDERS: Surgery
DX: K43.6 Other and unspecified ventral hernia with obstruction, without gangrene (principal); K76.89 Other specified diseases of liver; M62.08 Separation of muscle (nontraumatic), other site